=== PATIENT | female | born 1980 | race African-American/Black ===

== ENCOUNTER 2020-11-27 14:59 | Emergency (ER) | payer OTHER ==
[2020-11-27 15:20] VITALS: BMI 29.2
[2020-11-27] MEDS ORDERED: ONDANSETRON 4 MG/2 ML VIAL IVPUSH ONE (15:32)
[2020-11-27] MEDS ORDERED: ACETAMINOPHEN 1000 MG/100 ML VIAL (NON FORMULARY) IVPB ONE (15:32)
[2020-11-27] MEDS ORDERED: SODIUM CHLORIDE 1,000 ML IV STA (15:32)
[2020-11-27] MEDS ORDERED: ACETAMINOPHEN INJECTION 100 ML IVPB ONE (16:01)
[2020-11-27] MEDS ORDERED: ONDANSETRON 4 MG/2 ML VIAL ONE (16:01)
[2020-11-27 16:44] LABS: BASO % 1.1 % (0-2.0); EOS % 7.9 % (0-4.5); HEMATOCRIT 43.8 % (32.4-45.2); HEMOGLOBIN 14.5 GM/dL (10.7-15.3); LYMPH % 31.8 % (8-40); MCH 30.1 pg (25.7-33.7); MCHC 33.2 g/dl (32.0-36.0); MEAN CELL VOLUME 90.4 fl (80-96); MEAN PLT VOLUME 7.9 fl (7.5-11.1); MONO % 7.2 % (3.8-10.2); PLATELET COUNT 303 K/MM3 (134-434); RBC 4.84 M/mm3 (3.60-5.2); RDW 14.2 % (11.6-15.6); WHITE BLOOD COUNT 7.2 K/mm3 (4.0-10.0)
[2020-11-27 16:54] LABS: POTASSIUM 3.9 mmol/L (3.5-5.1)
[2020-11-27 16:56] LABS: CALCIUM 8.9 mg/dL (8.5-10.1)
[2020-11-27 16:57] LABS: ALBUMIN 3.8 g/dl (3.4-5.0); BLOOD UREA NITROGEN 13.1 mg/dL (7-18)
[2020-11-27 17:01] LABS: TOT PROT 7.2 g/dl (6.4-8.2)
[2020-11-27 17:13] LABS: BILIRUBIN,TOTAL 0.2 mg/dL (0.2-1)
[2020-11-27 18:33] LABS: PH,URINE 5.5 (5.0-8.0); URINE APPEARANCE CLEAR; URINE BILIRUBIN NEGATIVE (NEGATIVE); URINE COLOR YELLOW; URINE GLUCOSE (UA) NEGATIVE (NEGATIVE); URINE KETONE NEGATIVE (NEGATIVE); URINE LEUK ESTERASE NEGATIVE (NEGATIVE); URINE NITRITE NEGATIVE (NEGATIVE); URINE PROTEIN NEGATIVE (NEGATIVE)
[2020-11-27 18:36] LABS: HCG,QUALITATIVE URINE Negative
[2020-11-27 19:15] VITALS: BP 131/87; PULSE 76; TEMP 98.3
== END 2020-11-28 00:35 | disposition home or self-care (01) ==
LOC: JER 14:59
PROC: 3E033NZ Introduction of Analgesics, Hypnotics, Sedatives into Peripheral Vein, Percutaneous Approach (ICD-10-PCS; principal; 2020-11-27)
PROC: 3E033GC Introduction of Other Therapeutic Substance into Peripheral Vein, Percutaneous Approach (ICD-10-PCS; 2020-11-27)
PROC: 3E0337Z Introduction of Electrolytic and Water Balance Substance into Peripheral Vein, Percutaneous Approach (ICD-10-PCS; 2020-11-27)
DX: R10.9 Unspecified abdominal pain (principal); M51.36 Other intervertebral disc degeneration, lumbar region; M41.9 Scoliosis, unspecified; N88.8 Other specified noninflammatory disorders of cervix uteri
CPT/HCPCS: 36415; 74177-TC; 76830-TC; 76856-TC; 80053; 81003; 83605; 83690; 84703; 85025; 87086; 99285-25; J0131; Q9967